=== PATIENT | male | born 1940 | race Caucasian/White ===

== ENCOUNTER 2016-09-24 19:29 | Emergency (ER) | payer MEDICARE, BC ==
[2016-09-24 20:00] VITALS: BP 146/70
--- NOTE | 2016-09-24 20:23 | UC ---
Skin Complaint HPI - HPI Summary HPI Summary: Noticed tick on R thigh today with large itchy red area around it. Has been doing lots of yard work, thinks it may have been there a couple days. - History of Current Complaint Chief Complaint: UCGeneralIllness Time Seen by Provider: 09/24/16 20:03 Stated Complaint: TICK BITE Hx Obtained From: Patient Onset/Duration: Gradual Onset, Lasting Days Timing: Constant Onset Severity: Mild Current Severity: Mild Location: Discrete Character: Swelling, Pruritus, Redness Aggravating: Nothing Alleviating: Nothing Associated Signs & Symptoms: Positive: Rash Related History: Insect Bite/Sting - Allergy/Home Medications Allergies/Adverse Reactions: Allergies Allergy/AdvReac Type Severity Reaction Status Date / Time No Known Allergies Allergy Verified 09/24/16 19:54 Review of Systems Constitutional: Negative Skin: Rash, Other - tick Eyes: Negative ENT: Negative Respiratory: Negative Cardiovascular: Negative Gastrointestinal: Negative Genitourinary: Negative Motor: Negative Neurovascular: Negative Musculoskeletal: Negative Neurological: Negative Psychological: Negative All Other Systems Reviewed And Are Negative: Yes PMH/Surg Hx/FS Hx/Imm Hx Endocrine History Of: Denies: Diabetes, Thyroid Disease Cardiovascular History Of: Denies: Cardiac Disorders, Hypertension Respiratory History Of: Denies: COPD, Asthma GI/ History Of: Denies: Ulcer - Surgical History Surgical History: None - Family History Known Family History: Positive: Hypertension - Social History Occupation: Retired Lives: Alone Alcohol Use: None Substance Use Type: None Smoking Status (MU): Never Smoked Tobacco - Immunization History Most Recent Influenza Vaccination: 2015 Most Recent Tetanus Shot: UTD Most Recent Pneumonia Vaccination: 2014 Physical Exam Triage Information Reviewed: Yes Appearance: Well-Appearing, No Pain Distress, Well-Nourished Vital Signs: Initial Vital Signs Temp 98.3 F 09/24/16 19:56 Pulse 67 09/24/16 19:56 Resp 17 09/24/16 19:56 BP 146/70 09/24/16 19:56 Pulse Ox 100 09/24/16 19:56 Vital Signs Reviewed: Yes Eye Exam: Normal Eyes: Positive: Conjunctiva Clear ENT Exam: Normal ENT: Positive: Normal ENT inspection, Hearing grossly normal, Pharynx normal Neck exam: Normal Neck: Positive: Supple, Nontender, No Lymphadenopathy Respiratory Exam: Normal Respiratory: Positive: Chest non-tender, Lungs clear, Normal breath sounds, No respiratory distress, No accessory muscle use Cardiovascular Exam: Normal Cardiovascular: Positive: RRR, No Murmur Musculoskeletal Exam: Normal Neurological Exam: Normal Psychological Exam: Normal Skin Exam: Other - tick in R thigh surrounded by 6cm x 8cm round erythematous area, slightly indurated. Tick removed with splinter forceps, pt andrew well. Course/Dx - Diagnoses Provider Diagnoses: tick removal. erythema migrans. early localized lyme infeciton Discharge - Discharge Plan Condition: Stable Disposition: HOME Prescriptions: DOXYcycline CAP(*) [DOXYcycline 100MG CAP(*)] 100 mg PO BID #28 cap Patient Education Materials: Lyme Disease (ED) Additional Instructions: As we discussed, it is very possible that the red area around your tick bite is simply a skin allergy to the tick venom. However, since it looks identical to the rash of lyme, it is best to treat you for lyme disease. Please see your primary care provider if you have fever longer than 4 days or prolonged symptoms.
== END 2016-09-24 20:20 | disposition home or self-care (01) ==
LOC: UCEAST 19:29
DX: S70.361A Insect bite (nonvenomous), right thigh, initial encounter (principal); W57.XXXA Bitten or stung by nonvenomous insect and other nonvenomous arthropods, initial encounter; Y93.H9 Activity, other involving exterior property and land maintenance, building and construction; Y92.096 Garden or yard of other non-institutional residence as the place of occurrence of the external cause; A69.20 Lyme disease, unspecified
CPT/HCPCS: 99201; G0463

== ENCOUNTER 2016-10-03 07:56 | Day surgery (SDC) | payer MEDICARE, BC ==
[~2016-10-03 07:56] MED LIST: Acetaminophen TAB* 325 MG PO PRN; Buffered Lidocaine 1% SYRIN* 3 ML/SYR SYRINGE INTRADERM ONE
[2016-10-03] MEDS ORDERED: Midazolam* 1 MG/ML 2 ML VIAL (2 MG) ONE ×2 (09:58→10:13)
[2016-10-03 10:55] VITALS: BP 123/53
--- NOTE | 2016-10-03 13:20 | OP ---
DATE OF OPERATION: 10/03/2016 - [facility] DATE OF : 1940. SURGEON: Fer Milan M.D. PREOPERATIVE DIAGNOSIS: Cataract right eye. POSTOPERATIVE DIAGNOSIS: Cataract right eye. OPERATIVE PROCEDURE: Phacoemulsification right eye with IOL. DESCRIPTION OF PROCEDURE: The patient was brought to the operating room after being given 1/2% Alcaine with epinephrine drops in the preoperative area. The eye was prepped and draped in the usual sterile fashion. Sterile drape and eyelid speculum were placed. Again, topical 1/2% Alcaine with epinephrine was given. A paracentesis incision was made at the 9 o'clock position with the No.75 blade. Clear cornea incision 2.2 x 2.2-mm was created at the 12 o'clock position starting at the anterior limbus using the 2.2-mm keratome. The anterior chamber was irrigated with 0.4 mL of 1% non-preservative intracameral lidocaine and filled with DisCoVisc. A capsulorrhexis was completed using the cystotome and the Utrata forceps. Hydrodissection was performed with balanced salt solution. The lens nucleus was removed with the Phacoemulsification handpiece without incident. Cortex was removed with the irrigation-aspiration handpiece. The capsular bag was re-inflated using DisCoVisc and an [id number] implant was inserted with the shooter. The irrigation-aspiration handpiece was used to remove all residual DisCoVisc. The eye was refilled with balanced salt solution and the wound checked and found to be watertight. Topical Maxitrol drops were given. [id number]/[facility] #: [id number] [facility] HOSPITALFrancisca
[2016-10-03] MEDS ORDERED: Proparacaine 0.5% OPHTH.SOL* 15 ML BTL ONE (13:50)
[2016-10-03] MEDS ORDERED: Neomycin/Polymy/Dex OPTH.SUSP* MAXITROL 0.1% 5 ML ONE (13:50)
[2016-10-03] MEDS ORDERED: Phenylephrine 2.5% OPTH.SOL* 2 ML BTL ONE (13:50)
[2016-10-03] MEDS ORDERED: acetaZOLAMIDE TAB* 250 MG ONE (13:50)
[2016-10-03] MEDS ORDERED: Lidocaine 2% EPI 1:200000 MPF* 20 ML VIAL ONE (13:50)
[2016-10-03] MEDS ORDERED: Lidocaine 1% MPF* 2 ML VIAL ONE (13:50)
[2016-10-03] MEDS ORDERED: Flurbiprofen 0.03% OPTH.SOL* 2.5 ML BTL ONE (13:50)
[2016-10-03] MEDS ORDERED: Povidone Iodine 5% OPTH* 30 ML BTL ONE (13:50)
[2016-10-03] MEDS ORDERED: Cyclopentolate 1% OPTH.SOL* 2 ML BTL ONE (13:50)
== END 2016-10-03 10:46 | disposition home or self-care (01) ==
LOC: OREAST 07:56
PROVIDERS: ATTEND Specialist
DX: H25.11 Age-related nuclear cataract, right eye (principal); H35.372 Puckering of macula, left eye; H26.492 Other secondary cataract, left eye; Z87.891 Personal history of nicotine dependence
CPT/HCPCS: A9270-GY; J2250; V2632

== ENCOUNTER 2018-10-15 20:56 | Emergency (ER) | payer MEDICARE, OTHER ==
[2018-10-15 21:35] VITALS: BP 152/81
--- NOTE | 2018-10-15 21:38 | UC ---
Skin Complaint HPI - HPI Summary HPI Summary: 78 y/o male presents to the urgent care c/o tick bite on the lateral side of his lower back he noticed about 2 hrs ago today. pt reports his couldn't removed tick. He had a tick bite last year and was given prophylactic treatment. Pt states milt itchiness and red rash around tick bite. Pt doesn't know how long it has been there, but it is not engorged. He was outside this afternoon. Pt denies MEDINA, fever, joint pain, abdominal pain, N/V/D, dizziness - History of Current Complaint Chief Complaint: UCSkin Time Seen by Provider: 10/15/18 21:37 Stated Complaint: TICK Hx Obtained From: Patient Onset/Duration: Sudden Onset, Lasting Hours - 12 hrs Skin Exposure Onset/Duration: Hours Ago - 12 hrs Onset Severity: Mild Current Severity: Mild Pain Intensity: 1 Pain Scale Used: 0-10 Numeric Location: Discrete - ;eft ;ateral side of lower back w/ tick bite Character: Pruritus, Redness Aggravating Factor(s): Touch Alleviating Factor(s): Nothing Associated Signs & Symptoms: Positive: Rash - around tick bite. Negative: Fever , Chills Related History: Possible Reaction to: Insect - Allergy/Home Medications Allergies/Adverse Reactions: Allergies Allergy/AdvReac Type Severity Reaction Status Date / Time No Known Allergies Allergy Verified 06/25/17 14:53 PMH/Surg Hx/FS Hx/Imm Hx Previously Healthy: Yes - Pt denies PMHX - Surgical History Surgical History: None Surgery Procedure, Year, and Place: gallbladder. prostrate - Family History Known Family History: Positive: Hypertension - Social History Occupation: Retired Lives: With Family Alcohol Use: Weekly Alcohol Amount: 3-4 DRINKS PER WEEK Substance Use Type: None Substance Use Comment - Amount & Last Used: 6 CUPS COFFEE PER DAY Smoking Status (MU): Former Smoker Amount Used/How Often: 1 PPD When Did the Patient Quit Smoking/Using Tobacco: 1966 - Immunization History Most Recent Influenza Vaccination: 2016 Most Recent Tetanus Shot: UTD Most Recent Pneumonia Vaccination: 2014 Review of Systems All Other Systems Reviewed And Are Negative: Yes Constitutional: Positive: Negative Skin: Positive: Other - lateral side of left lower back w/ tick bite Eyes: Positive: Negative ENT: Positive: Negative Respiratory: Positive: Negative Cardiovascular: Positive: Negative Gastrointestinal: Positive: Negative Genitourinary: Positive: Negative Motor: Positive: Negative Neurovascular: Positive: Negative Musculoskeletal: Positive: Negative Neurological: Positive: Negative Psychological: Positive: Negative Is Patient Immunocompromised?: No Physical Exam - Summary Physical Exam Summary: Vital Signs Reviewed: Yes General: well developed, well nourished obese male sitting in the examining table w/o any apparent distress. Eyes: Positive: Conjunctiva Clear - PERRLA, EOMI ENT: Positive: Normal ENT inspection, Hearing grossly normal, Pharynx normal, TMs normal Neck: Positive: Supple, Nontender, No Lymphadenopathy Respiratory: Positive: Chest nontender, Lungs clear, Normal breath sounds Cardiovascular: Positive: RRR, No Murmur, Pulses Normal Abdomen Description: Positive: Nontender, No Organomegaly, Soft. Negative: CVA Tenderness (R), CVA Tenderness (L) Bowel Sounds: Positive: Present Musculoskeletal: Positive: Strength Intact, ROM Intact, No Edema Neurological Exam: Normal Psychological Exam: Normal Skin: Positive: rashes - left lateral side of lower back with tick bite with surrounding erythema, non tender to palpation. tick still present present, no swelling or drainage observed. Triage Information Reviewed: Yes Vital Signs: Initial Vital Signs Temp 97.9 F 10/15/18 21:29 Pulse 71 10/15/18 21:29 Resp 20 10/15/18 21:29 BP 152/81 10/15/18 21:29 Pulse Ox 96 10/15/18 21:29 Course/Dx - Course Course Of Treatment: 78 y/o male presents to the urgent care c/o tick bite on the lateral side of his lower back he noticed about 2 hrs ago today. pt reports his couldn't removed tick. He had a tick bite last year and was given prophylactic treatment. Pt states milt itchiness and red rash around tick bite. Pt doesn't know how long it has been there, but it is not engorged. He was outside this afternoon. Pt denies MEDINA, fever, joint pain, abdominal pain, N/V/D, dizziness. Hx obtained. Pt w/ tick bite on the lateral side of lower back w/ live tick still present. Tick was removed from lateral left lower back using twister technique. Tick not engorged and still alive. After tick removal and the skin cleansing. Prophylactic treatment w/ Doxycycline PO given to the patient. Pt tolerated well medication. Pt advised to observe the area for the development or Erythema Migrans for upto 30 days following exposure. Advised that there is possibility the serology returns negative the first 2 weeks of exposure. However strongly advised to f/u with PCP or Dr Solorio or PCP for further management if he developed the rash fever or joint pains. Pt BP today elevated w /o Hx of HTN. Pt advised to decrease salt in diet and monitor BP at home if it continues to be elevated to f/u with PCP for further management. D/C instructions explained. Pt understood and agreed with plan of care. - Differential Diagnoses - Skin Complaint Differential Diagnoses: Abscess, Cellulitis, Contact Dermatitis, Poison Caitlin, Tick Born Illness - Diagnoses Provider Diagnosis: Tick bite of back, Elevated BP without diagnosis of hypertension Discharge - Sign-Out/Discharge Documenting (check all that apply): Patient Departure - d/C home All imaging exams completed and their final reports reviewed: No Studies - Discharge Plan Condition: Stable Disposition: HOME Patient Education Materials: Insect Bite or Sting (ED), Low-Sodium Diet (ED) Referrals: Aurelio Orozco MD [Primary Care Provider] - 2 Weeks Doug ANDINO,Ej Enciso [Medical Doctor] - If Needed Additional Instructions: 1- Please observe the area for the development or Erythema Migrans for upto 30 days following exposure. Components of the tick saliva can cause transient erythema that should not be confused with Erythema Migrans. If you develop the bull's eye rash, fever, joint pains please return to the urgent care or f/u with your PCP for further management. Please apply Bacitracin oint BID x 7 days around tick bite 2-Antibiotic prophylaxis with Doxycycline was given to you today to prevent lyme Disease. Lyme serology can be drawn in 2 weeks with your PCP or Dr Solorio to r/o Lyme disease since there is probability of negative results at early exposure. 3-Your BP is elevated today. Please take your BP medications and decrease salt in your diet, monitor BP and if it continues to be elevated please f/u with your PCP for further management. If you develop chest pain, dizziness, visual disturbances, SOB, or severe MEDINA please go immediately to the ER for further management - Billing Disposition and Condition Condition: STABLE Disposition: Home - Attestation Statements Provider Attestation: I was available for consult. This patient was seen by the MALINDA. The patient was not presented to, seen by, or examined by me. -Abdelrahman
[2018-10-15] MEDS ORDERED: DOXYcycline CAP(*) 100 MG PO ONE (21:49)
== END 2018-10-15 22:05 | disposition home or self-care (01) ==
LOC: UCEAST 20:56
DX: S30.860A Insect bite (nonvenomous) of lower back and pelvis, initial encounter (principal); R21 Rash and other nonspecific skin eruption; W57.XXXA Bitten or stung by nonvenomous insect and other nonvenomous arthropods, initial encounter; Y92.9 Unspecified place or not applicable; R03.0 Elevated blood-pressure reading, without diagnosis of hypertension
CPT/HCPCS: 99212; A9270-GY; G0463